=== PATIENT | male | born 1965 | race Caucasian/White ===

== ENCOUNTER 2016-07-19 16:05 | Emergency (ER) | payer BC ==
[2016-07-19] MEDS: Acetaminophen 325 MG Tab PO ONE (16:30)
[2016-07-19] MEDS: Sodium Chloride 0.9% 1,000 ML IV ONE (16:30)
[2016-07-19] MEDS: Ketorolac 30 MG/ML SDV IVPUSH ONE (16:30)
[2016-07-19] MEDS: Metoclopramide 10 MG/2 ML SDV IVPUSH ONE (16:40)
[2016-07-19] MEDS: LORazepam 2 MG/ML MDV IVPUSH ONE (17:28)
[2016-07-19] MEDS: Pramipexole 0.5 MG Tab PO SCH (18:00)
[2016-07-19] MEDS: Amitriptyline 25 MG Tab PO ONE (18:00)
[2016-07-19] MEDS: Amitriptyline 25 MG Tab ONE (18:00)
[2016-07-19] MEDS: Pregabalin 25 MG Cap PO SCH (18:00)
--- NOTE | 2016-07-19 18:18 | EDM.PDOC ---
ED HPI GENERAL MEDICAL PROBLEM - General Chief Complaint: Fever Stated Complaint: fever Time Seen by Provider: 07/19/16 16:22 Source of Information: Reports: Patient History Limitations: Reports: No limitations - History of Present Illness INITIAL COMMENTS - FREE TEXT/NARRATIVE: PT PRESENTS WITH PERSISTENT FEVER BUT DID NOT TAKE ANY ANTIPYRETIC MEDS POST DISCHARGE. ADMITTED DURING NIGHT FOR FEVER. DENIES CP, SOB, N/V/D, ABD PAIN, OR DYSURIA Onset: gradual Onset Date: 07/18/16 Quality: Reports: Ache Severity: mild Improves with: Reports: None Worsens with: Reports: None Associated Symptoms: Reports: fever/chills - Related Data Allergies Allergy/AdvReac Type Severity Reaction Status Date / Time No Known Drug Allergies Allergy Cannot Verified 07/18/16 23:02 Remember Home Meds: Home Meds Amitriptyline [Elavil] 50 mg PO BEDTIME 07/18/16 [History] Apixaban [Eliquis] 5 mg PO BID 07/18/16 [History] DULoxetine [Cymbalta] 60 mg PO DAILY 07/18/16 [History] Pramipexole Di-HCl [Pramipexole Dihydrochloride] 2 mg PO BEDTIME PRN 07/18/16 [ History] Pregabalin [Lyrica] 200 mg PO BEDTIME 07/18/16 [History] Past Medical History Cardiovascular History: Reports: Blood clots/VTE/DVT Neurological History: Reports: Other (see below) Other Neuro History: Restless leg syndrome Psychiatric History: Reports: Depression Social & Family History - Tobacco Use Smoking Status *Q: Never Smoker Second Hand Smoke Exposure: No - Recreational Drug Use Recreational Drug Use: No ED ROS GENERAL - Review of Systems Review Of Systems: ROS reveals no pertinent complaints other than HPI. Constitutional: Reports: fever, chills HEENT: Reports: No symptoms Respiratory: Reports: no symptoms Cardiovascular: Reports: No symptoms Endocrine: Reports: no symptoms GI/Abdominal: Reports: No symptoms : Reports: no symptoms Musculoskeletal: Reports: no symptoms Skin: Reports: no symptoms Neurological: Reports: no symptoms Psychiatric: Reports: No symptoms Hematologic/Lymphatic: Reports: no symptoms Immunologic: Reports: no symptoms ED EXAM, GENERAL - Physical Exam Exam: See Below Exam Limited By: No limitations General Appearance: alert, WD/WN, no apparent distress Throat/Mouth: Normal inspection, Normal oropharynx, No airway compromise, Other (LEFT UPPER MANDIBLE TOOTH EXTRACTION SOCKET WITHOUT ERYTHEMA, EDEMA, OR BLEEDING) Neck: normal inspection, supple, non-tender. No: lymphadenopathy (L), lymphadenopathy (R) Respiratory/Chest: no respiratory distress, lungs clear, normal breath sounds, no accessory muscle use, chest non-tender Cardiovascular: regular rate, rhythm GI/Abdominal: normal bowel sounds, soft, non tender Extremities: normal inspection Neurological: alert, oriented, normal cognition Psychiatric: anxious Skin Exam: Warm, Dry, Intact, Normal color, No rash Lymphatic: no adenopathy Course - Vital Signs Last Recorded V/S: Last Vital Signs Temp 101.3 F H 07/19/16 16:30 Pulse Resp BP Pulse Ox - Orders/Labs/Meds Orders: Active Orders 24 hr Category Date Time Status Peripheral IV Care [RC] . DIRECTED Care 07/19/16 16:26 Active Sodium Chloride 0.9% [Syrex Flush] Med 07/19/16 16:26 Active 5 ml FLUSH Q8HR PRN Peripheral IV Insertion Adult [OM.PC] Routine Oth 07/19/16 16:26 Ordered Medication Orders Sodium Chloride (Syrex Flush) 5 ml FLUSH Q8HR PRN PRN Reason: Keep Vein Open Labs: Laboratory Tests 07/19/16 07/19/16 Range/Units 17:30 17:30 Lactic Acid 1.1 (0.4-2.0) mmol/L Creatine Kinase 152 (26-276) U/L Meds: Medications Generic Name Dose Route Start Last Admin Trade Name Freq PRN Reason Stop Dose Admin Sodium Chloride 5 ml 07/19/16 16:26 Syrex Flush FLUSH Q8HR PRN Keep Vein Open Discontinued Medications Generic Name Dose Route Start Last Admin Trade Name Freq PRN Reason Stop Dose Admin Acetaminophen 650 mg 07/19/16 16:26 07/19/16 16:30 Tylenol PO 07/19/16 16:27 650 mg NOW ONE Administration Amitriptyline HCl Confirm 07/19/16 17:55 Elavil Administered 07/19/16 17:56 Dose 100 mg .ROUTE .STK-MED ONE Sodium Chloride 1,000 mls @ 999 mls/hr 07/19/16 16:26 07/19/16 16:30 Normal Saline IV 07/19/16 17:26 999 mls/hr .BOLUS ONE Administration Ketorolac Tromethamine 30 mg 07/19/16 16:26 07/19/16 16:30 Toradol IVPUSH 07/19/16 16:27 30 mg ONETIME ONE Administration Lorazepam 1 mg 07/19/16 17:03 07/19/16 17:28 Ativan IVPUSH 07/19/16 17:04 1 mg ONETIME ONE Administration Metoclopramide HCl 10 mg 07/19/16 16:27 07/19/16 16:40 Reglan IVPUSH 07/19/16 16:28 10 mg ONETIME ONE Administration Pregabalin Confirm 07/19/16 17:54 Lyrica Administered 07/19/16 17:55 Dose 200 mg .ROUTE .[facility]-MED ONE - Re-Assessments/Exams Free Text/Narrative Re-Assessment/Exam: 07/19/16 18:16 FEVER REDUCED AND PT FEELS MUCH BETTER. BECAME ANXIOUS WHEN FEVER RETURNED WHILE HOME. WILL SEND HOME WITH REPEAT INSTRUCTIONS FOR FEVER CONTROL AND F/U TO PCP. Departure - Departure Time of Disposition: 18:18 Disposition: Home, Self-Care 01 Condition: good Clinical Impression: Fever Qualifiers: Fever type: unspecified Qualified Code(s): R50.9 - Fever, unspecified H/O tooth extraction Qualifiers: Tooth loss class: unspecified tooth loss Qualified Code(s): K08.409 - Partial loss of teeth, unspecified cause, unspecified class Additional Instructions: FOLLOW UP WITH PCP ON SUNDAY. RETURN TO ER SOONER IF SYMPTOMS CONTINUE - My Orders Last 24 Hours: My Active Orders 07/19/16 16:26 Peripheral IV Care [RC] . DIRECTED Sodium Chloride 0.9% [Syrex Flush] 5 ml FLUSH Q8HR PRN Peripheral IV Insertion Adult [OM.PC] Routine - Assessment/Plan Last 24 Hours: My Active Orders 07/19/16 16:26 Peripheral IV Care [RC] . DIRECTED Sodium Chloride 0.9% [Syrex Flush] 5 ml FLUSH Q8HR PRN Peripheral IV Insertion Adult [OM.PC] Routine
[2016-07-19] MEDS: Pregabalin 25 MG Cap ONE (19:17)
[2016-07-19] MEDS: Sodium Chloride 0.9% 5 ML Syringe FLUSH PRN (19:18)
[2016-07-19 19:31] VITALS: BP 150/100
== END 2016-07-19 18:30 | disposition home or self-care (01) ==
LOC: KA.ED 16:05
DX: R50.9 Fever, unspecified (principal); Z79.899 Other long term (current) drug therapy; Z86.718 Personal history of other venous thrombosis and embolism; G25.81 Restless legs syndrome; F32.9 Major depressive disorder, single episode, unspecified; K08.409 Partial loss of teeth, unspecified cause, unspecified class; Z98.890 Other specified postprocedural states
CPT/HCPCS: 36415; 82550; 83605; 96361; 96374; 96375; 99283; A9270-GY; J1885; J2060; J2765; J7030

== ENCOUNTER 2016-11-30 04:07 | Emergency (ER) | payer BC ==
[2016-11-30] MEDS ORDERED: Acetaminophen/oxyCODONE 325-5 MG Tab PO ONE ×2 (04:26→04:48)
[2016-11-30] MEDS ORDERED: Silver Sulfadiazine 1% Crm 400 GM Jar TOP ONE (04:26)
[2016-11-30] MEDS ORDERED: Diphtheria,Pertussis(Acell),Tetanus Vaccine 0.5 ML SDV IM ONE (04:26)
[2016-11-30] MEDS ORDERED: Silver Sulfadiazine 1% Crm 400 GM Jar ONE (04:27)
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
[2016-11-30 05:53] VITALS: BP 143/82
== END 2016-11-30 06:07 | disposition home or self-care (01) ==
LOC: KA.ED 04:07
DX: T23.252A Burn of second degree of left palm, initial encounter (principal); F32.9 Major depressive disorder, single episode, unspecified; Z79.899 Other long term (current) drug therapy
CPT/HCPCS: 16020; 90471; 90715; 99283; A9270

== ENCOUNTER 2017-10-11 15:00 | Emergency (ER) | payer BC ==
[2017-10-11 15:13] VITALS: BP 148/80
--- NOTE | 2017-10-11 15:39 | EDM.PDOC ---
ED HPI GENERAL MEDICAL PROBLEM - General Chief Complaint: General Stated Complaint: fever Time Seen by Provider: 10/11/17 15:15 Source of Information: Reports: Patient History Limitations: Reports: No Limitations - History of Present Illness INITIAL COMMENTS - FREE TEXT/NARRATIVE: Patient is a 52-year-old gentleman who presents to the emergency department with a complaint of fever and body aches. Patient states symptoms began yesterday and worsened today. She took [id number] TheraFlu without improvement. Patient denies shortness of breath, chest pain, nausea, vomiting, diarrhea, out of country travel, or contact with known sick individuals. Onset: Gradual Duration: Day(s): Quality: Reports: Ache (Overall body aches) Severity: Mild Improves with: Reports: None Worsens with: Reports: None Associated Symptoms: Reports: Cough, Fever/Chills. Denies: Nausea/Vomiting, Shortness of Breath Headache Pain Score (Numeric/FACES): 2 - Related Data Allergies Allergy/AdvReac Type Severity Reaction Status Date / Time No Known Drug Allergies Allergy Cannot Verified 11/30/16 04:09 Remember Home Meds: Home Meds Amitriptyline [Elavil] 50 mg PO BEDTIME 07/18/16 [History] DULoxetine [Cymbalta] 60 mg PO DAILY 07/18/16 [History] Pramipexole Di-HCl [Pramipexole Dihydrochloride] 2 mg PO BEDTIME PRN 07/18/16 [ History] Pregabalin [Lyrica] 200 mg PO BEDTIME 07/18/16 [History] Apixaban [Eliquis] 5 mg PO BID 10/11/17 [History] Baclofen 10 mg PO BID 10/11/17 [History] Diazepam [Valium] 5 mg PO BID PRN 10/11/17 [History] Omeprazole 40 mg PO DAILY 10/11/17 [History] metFORMIN HCl [Metformin HCl] 500 mg PO DAILY 10/11/17 [History] Past Medical History Cardiovascular History: Reports: Blood Clots/VTE/DVT Musculoskeletal History: Reports: Other (See Below) Other Musculoskeletal History: restless legs Neurological History: Reports: Other (See Below) Other Neuro History: Restless leg syndrome Psychiatric History: Reports: Depression Hematologic History: Reports: None Social & Family History - Caffeine Use Caffeine Use: Reports: Soda Caffeine Use Comment: did not ask ED ROS GENERAL - Review of Systems Review Of Systems: ROS reveals no pertinent complaints other than HPI. Constitutional: Reports: Fever, Chills HEENT: Reports: No Symptoms Respiratory: Reports: Cough Cardiovascular: Reports: No Symptoms Endocrine: Reports: No Symptoms GI/Abdominal: Reports: No Symptoms : Reports: No Symptoms Musculoskeletal: Reports: No Symptoms Skin: Reports: No Symptoms Neurological: Reports: No Symptoms Psychiatric: Reports: No Symptoms Hematologic/Lymphatic: Reports: No Symptoms Immunologic: Reports: No Symptoms ED EXAM, GENERAL - Physical Exam Exam: See Below Exam Limited By: No Limitations General Appearance: Alert, WD/WN, No Apparent Distress Eye Exam: Bilateral Eye: Normal Inspection Ears: Normal External Exam, Normal Canal, Normal TMs Nose: Normal Inspection, No Blood, Clear Rhinorrhea, Other (Mucosal erythema) Throat/Mouth: Normal Inspection, Normal Oropharynx, No Airway Compromise Head: Atraumatic, Normocephalic Neck: Normal Inspection, Supple, Non-Tender. No: Lymphadenopathy (L), Lymphadenopathy (R) Respiratory/Chest: No Respiratory Distress, Lungs Clear, Normal Breath Sounds, No Accessory Muscle Use, Chest Non-Tender Cardiovascular: Regular Rate, Rhythm, No Murmur GI/Abdominal: Normal Bowel Sounds, Soft, Non-Tender Back Exam: Normal Inspection. No: CVA Tenderness (L), CVA Tenderness (R) Extremities: Normal Inspection, No Pedal Edema Neurological: Alert, Oriented, Normal Cognition Psychiatric: Normal Affect, Normal Mood Skin Exam: Warm, Dry, Intact, Normal Color, No Rash Lymphatic: No Adenopathy Course - Vital Signs Last Recorded V/S: Last Vital Signs Temp 97.8 F 10/11/17 15:10 Pulse 66 10/11/17 15:10 Resp 18 10/11/17 15:10 BP 148/80 H 10/11/17 15:10 Pulse Ox 97 10/11/17 15:10 - Orders/Labs/Meds Orders: Active Orders 24 hr Category Date Time Status INFLUENZA A+B AG SCREEN [RM] Stat Lab 10/11/17 15:24 Ordered - Re-Assessments/Exams Free Text/Narrative Re-Assessment/Exam: 10/11/17 16:09 Patient afebrile, nontoxic appearing, vital signs stable, feels a little better after taking 6 mg Motrin. Influenza negative. Patient will follow-up with PCP Departure - Departure Time of Disposition: 16:09 Disposition: Home, Self-Care 01 Condition: Good Clinical Impression: Upper respiratory infection - Discharge Information Referrals: Marlin Garcia PA-C [Primary Care Provider] - Additional Instructions: Follow-up with the primary care doctor in 2-3 days. Return to emergency department sooner if symptoms continue or worsen. - My Orders Last 24 Hours: My Active Orders 10/11/17 15:24 INFLUENZA A+B AG SCREEN [RM] Stat - Assessment/Plan Last 24 Hours: My Active Orders 10/11/17 15:24 INFLUENZA A+B AG SCREEN [RM] Stat Assessment:: Upper respiratory infection Plan: Follow-up with PCP in 2-3 days
[2017-10-11] MEDS: Ibuprofen 600 MG Tab PO ONE (15:57)
== END 2017-10-11 16:15 | disposition home or self-care (01) ==
LOC: KA.ED 15:00
DX: J06.9 Acute upper respiratory infection, unspecified (principal); Z79.899 Other long term (current) drug therapy; Z79.84 Long term (current) use of oral hypoglycemic drugs
CPT/HCPCS: 87804; 99283; A9270-GY

== ENCOUNTER 2017-12-08 18:17 | Emergency (ER) | payer BC ==
[2017-12-08 18:38] VITALS: BP 120/82
--- NOTE | 2017-12-08 18:40 | EDM.PDOC ---
ED HPI GENERAL MEDICAL PROBLEM - General Chief Complaint: Upper Extremity Injury/Pain Stated Complaint: LEFT ARM INJURY Time Seen by Provider: 12/08/17 18:20 Source of Information: Reports: Patient History Limitations: Reports: No Limitations - History of Present Illness INITIAL COMMENTS - FREE TEXT/NARRATIVE: Patient is a 52-year-old gentleman who presents to the emergency department this afternoon with a complaint of left wrist laceration. Patient states he was using a sharp knife and accidentally cut left wrist. This happened just prior to arrival. Patient is not up-to-date with tetanus. Patient denies any other injury, or intent to hurt self. Onset: Today, Sudden Onset Date: 12/08/17 Onset Time: 17:00 Duration: Minutes: Location: Reports: Upper Extremity, Left Quality: Reports: Burning Severity: Mild Improves with: Reports: None Worsens with: Reports: None Context: Reports: Trauma Associated Symptoms: Reports: No Other Symptoms - Related Data Allergies Allergy/AdvReac Type Severity Reaction Status Date / Time No Known Drug Allergies Allergy Cannot Verified 12/08/17 18:33 Remember Home Meds: Home Meds Amitriptyline [Elavil] 50 mg PO BEDTIME 07/18/16 [History] DULoxetine [Cymbalta] 60 mg PO DAILY 07/18/16 [History] Pramipexole Di-HCl [Pramipexole Dihydrochloride] 2 mg PO BEDTIME PRN 07/18/16 [ History] Pregabalin [Lyrica] 200 mg PO BEDTIME 07/18/16 [History] Diazepam [Valium] 5 mg PO BID PRN 10/11/17 [History] Past Medical History Cardiovascular History: Reports: Blood Clots/VTE/DVT Musculoskeletal History: Reports: Other (See Below) Other Musculoskeletal History: restless legs Neurological History: Reports: Other (See Below) Other Neuro History: Restless leg syndrome Psychiatric History: Reports: Depression Hematologic History: Reports: None Social & Family History - Caffeine Use Caffeine Use: Reports: Soda Caffeine Use Comment: did not ask Review of Systems - Review of Systems Review Of Systems: ROS reveals no pertinent complaints other than HPI. Constitutional: Reports: No Symptoms Eyes: Reports: No Symptoms Ears: Reports: No Symptoms Nose: Reports: No Symptoms Mouth/Throat: Reports: No Symptoms Respiratory: Reports: No Symptoms Cardiovascular: Reports: No Symptoms GI/Abdominal: Reports: No Symptoms Genitourinary: Reports: No Symptoms Musculoskeletal: Reports: No Symptoms Skin: Reports: Wound (Laceration to left medial wrist) Neurological: Reports: No Symptoms Psychiatric: Reports: No Symptoms ED EXAM, GENERAL - Physical Exam Exam: See Below Exam Limited By: No Limitations General Appearance: Alert, WD/WN, No Apparent Distress Throat/Mouth: Normal Inspection, Normal Oropharynx, No Airway Compromise Head: Atraumatic, Normocephalic Respiratory/Chest: No Respiratory Distress Extremities: Normal Inspection Neurological: Alert, Oriented, Normal Cognition Psychiatric: Normal Affect, Normal Mood Skin Exam: Wound/Incision (3 cm linear laceration at the medial aspect of left wrist. No arterial or tendon involvement noted) ED TRAUMA EXTREMITY PROCEDURES - Laceration/Wound Repair Left Medial Distal Wrist Lac/Wound Length In cm: 3 Appearance: Superficial Distal NVT: Neuro & Vascular Intact, No Tendon Injury Anesthetic Type: Local Local Anesthesia - Lidocaine (Xylocaine): 2% Plain Local Anesthetic Volume: 3cc Skin Prep: Providone-Iodine (Betadine) Closed With: Sutures Suture Size: 4-0 Suture Type: Nylon, Interrupted Sterile Dressing Applied: Nurse Tetanus Status Addressed: Yes Complications: No Course - Orders/Labs/Meds Meds: Medications Discontinued Medications Generic Name Dose Route Start Last Admin Trade Name Elodia PRN Reason Stop Dose Admin Lidocaine HCl Confirm 12/08/17 18:25 Xylocaine 1% Administered 12/08/17 18:26 Dose 20 ml .ROUTE .STK-MED ONE - Re-Assessments/Exams Free Text/Narrative Re-Assessment/Exam: 12/08/17 18:42 Patient afebrile, nontoxic appearing, vital signs stable. Tolerated procedure well. Patient will follow-up with PCP for suture removal in 10 days Departure - Departure Time of Disposition: 18:42 Disposition: Home, Self-Care 01 Condition: Good Clinical Impression: Forearm laceration Qualifiers: Encounter type: initial encounter Laterality: left Qualified Code(s): S51.812A - Laceration without foreign body of left forearm, initial encounter - Discharge Information Instructions: Stitches, Tad, or Adhesive Wound Closure, [id number], Sutured Wound Care, [id number] Forms: ED Department Discharge Additional Instructions: Follow-up with PCP in 10 days for suture removal. Return to emergency department sooner if symptoms continue or worsen.
[2017-12-08] MEDS: Lidocaine 1% 20 ML MDV ONE (18:45)
[2017-12-08] MEDS: Bacitracin/Neomycin/Polymyxin B Oint 0.9 GM U/D Packet TOP ONE (18:46)
[2017-12-08] MEDS: Diphtheria,Pertussis(Acell),Tetanus Vaccine 0.5 ML SDV IM ONE (18:47)
[2017-12-08] MEDS: Bacitracin/Neomycin/Polymyxin B Oint 0.9 GM U/D Packet ONE (19:25)
[2017-12-08] MEDS: Lidocaine 1% 50 ML MDV SUBCUT ONE (19:25)
== END 2017-12-08 18:50 | disposition home or self-care (01) ==
LOC: KA.ED 18:17
DX: S61.512A Laceration without foreign body of left wrist, initial encounter (principal); Z23 Encounter for immunization; W26.0XXA Contact with knife, initial encounter
CPT/HCPCS: 12002; 90471; 90715; 99283

== ENCOUNTER 2018-12-22 10:07 | Emergency (ER) | payer BC ==
[2018-12-22 10:49] VITALS: BP 130/88; PULSE 80
[2018-12-22 11:11] LABS: ANION GAP 11.7 mmol/L (5-15); CHLORIDE,CL 100 mmol/L (98-115); SODIUM,NA 134 mmol/L (136-145)
--- NOTE | 2018-12-22 12:54 | EDM.PDOC ---
ED HPI GENERAL MEDICAL PROBLEM - General Chief Complaint: General Stated Complaint: CAN'T STAY AWAKE Time Seen by Provider: 12/22/18 10:30 Source of Information: Reports: Patient, Family (mother) History Limitations: Reports: No Limitations - History of Present Illness INITIAL COMMENTS - FREE TEXT/NARRATIVE: Chief complaint" I can't stay awake" It 53-year-old gentleman reports that feeling tired and drowsy having a hard time staying awake. Denies any recent illnesses. He denies any history of anemia. He has not noticed any dark stools or bleeding from his stools. He's not had any hematuria. He's not had any upper respiratory infections. No chest pain, shortness of breath, abdominal complaints. He does have a history which reports significant for restless leg syndrome, diabetes, hypercholesterolemia, GERD, and history of a DVT. 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 He reports some increased stress this last week and states that his diet has not been good due to the stress load this week. He states that his blood sugars are fairly well controlled. Blood sugar this morning was 300. He states that he has not eaten anything today. He is on several medications which include Valium 5 mg baclofen 10 mg Lyrica 200 mg Mirapex 2 mg amitriptyline 50 mg and Cymbalta 60 mg he takes most of these medications during the evening with the exception of the Cymbalta he takes in the morning he is also on metformin 500 mg twice a day and request 5 mg for history of DVT. He reports he is noncompliant with the Ellik was. He also takes a statin and Prilosec. I will address the amount of medications that he takes at night and the concern with these being suppressant medications and comminution can be lethal. He states that he has to take him in order to help for his restless leg syndrome. 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: Other Medication(s) - Related Data Allergies Allergy/AdvReac Type Severity Reaction Status Date / Time No Known Drug Allergies Allergy Cannot Verified 12/22/18 12:05 Remember Home Meds: Home Meds Amitriptyline [Elavil] 50 mg PO BEDTIME 07/18/16 [History] DULoxetine [Cymbalta] 60 mg PO QAM 07/18/16 [History] Pregabalin [Lyrica] 200 mg PO BEDTIME 07/18/16 [History] diazePAM [Valium] 5 mg PO BID PRN 10/11/17 [History] Apixaban [Eliquis] 5 mg PO ASDIRECTED 12/22/18 [History] Baclofen 10 mg PO BEDTIME 12/22/18 [History] Omeprazole 40 mg PO ASDIRECTED 12/22/18 [History] Pramipexole Di-HCl [Mirapex] 2 mg PO BEDTIME 12/22/18 [History] Rosuvastatin [Crestor] 10 mg PO DAILY 12/22/18 [History] metFORMIN [Glucophage XR] 500 mg PO BID 12/22/18 [History] Past Medical History HEENT History: Reports: Impaired Vision Cardiovascular History: Reports: Blood Clots/VTE/DVT, High Cholesterol, Hypertension Gastrointestinal History: Reports: GERD Musculoskeletal History: Reports: Other (See Below) Other Musculoskeletal History: restless legs Neurological History: Reports: Other (See Below) Other Neuro History: Restless leg syndrome Psychiatric History: Reports: Anxiety, Depression, Hallucinations, Panic Attack Endocrine/Metabolic History: Reports: Diabetes, Type I, Obesity/BMI 30+ Hematologic History: Reports: None Dermatologic History: Reports: Psoriasis Other Dermatologic History: ears - Infectious Disease History Infectious Disease History: Reports: None - Past Surgical History HEENT Surgical History: Reports: Oral Surgery Cardiovascular Surgical History: Reports: None GI Surgical History: Reports: None Neurological Surgical History: Reports: None Musculoskeletal Surgical History: Reports: Carpal Tunnel Dermatological Surgical History: Reports: None Social & Family History - Tobacco Use Smoking Status *Q: Former Smoker Used Tobacco, but Quit: Yes Month/Year Tobacco Last Used: 03/1999 - Caffeine Use Caffeine Use: Reports: Coffee Caffeine Use Comment: 6-8 cups of coffee ED ROS GENERAL - Review of Systems Review Of Systems: See Below Constitutional: Reports: Malaise, Fatigue HEENT: Reports: No Symptoms Respiratory: Reports: No Symptoms Cardiovascular: Reports: Blood Pressure Problem Endocrine: Reports: High Glucose GI/Abdominal: Reports: No Symptoms : Reports: No Symptoms Musculoskeletal: Reports: Back Pain Skin: Reports: No Symptoms Neurological: Reports: No Symptoms Psychiatric: Reports: No Symptoms Hematologic/Lymphatic: Denies: Anemia Immunologic: Reports: No Symptoms ED EXAM, GENERAL - Physical Exam Exam: See Below Exam Limited By: No Limitations General Appearance: Alert, No Apparent Distress, Obese Eye Exam: Bilateral Eye: EOMI, PERRL Ears: Hearing Grossly Normal Nose: Normal Inspection Throat/Mouth: Normal Inspection, Normal Voice, No Airway Compromise Head: Atraumatic, Normocephalic Neck: Normal Inspection, Supple Respiratory/Chest: No Respiratory Distress, Lungs Clear, Normal Breath Sounds Cardiovascular: Regular Rate, Rhythm GI/Abdominal: Soft Back Exam: Normal Inspection Extremities: Normal Inspection, Normal Range of Motion Neurological: Alert, Oriented, Normal Gait, No Motor/Sensory Deficits Psychiatric: Normal Affect, Normal Mood Skin Exam: Warm, Dry, Intact, Normal Color, No Rash Lymphatic: No Adenopathy Course - Vital Signs Last Recorded V/S: Last Vital Signs Temp 97.8 F 12/22/18 10:47 Pulse 85 12/22/18 10:47 Resp 20 12/22/18 10:47 BP 134/79 12/22/18 10:47 Pulse Ox 95 12/22/18 10:47 - Orders/Labs/Meds Orders: Active Orders 24 hr Category Date Time Status Blood Glucose Check, Bedside [RC] ONETIME Care 12/22/18 10:20 Active Labs: Laboratory Tests 12/22/18 12/22/18 12/22/18 Range/Units 10:22 10:38 10:38 WBC 5.50 (5.00-10.00) 10^3/uL RBC 4.58 (4.50-6.00) 10^6/uL Hgb 14.4 (13.0-17.0) g/dL Hct 42.6 (40.0-52.0) % MCV 93.0 H (82.0-92.0) fL MCH 31.4 H (27.0-31.0) pg MCHC 33.8 (32.0-36.0) g/dL RDW 12.2 (11.5-14.5) % Plt Count 247 (150-400) 10^3/uL MPV 9.2 (7.4-10.4) fL Immature Gran % (Auto) 0.2 (0.0-5.0) % Neut % (Auto) 58.8 (50.0-70.0) % Lymph % (Auto) 26.2 (20.0-40.0) % [place] % (Auto) 8.4 H (2.0-8.0) % Eos % (Auto) 5.5 H (1.0-3.0) % Baso % (Auto) 0.9 (0.0-1.0) % Immature Gran # (Auto) 0.01 (0.00-0.50) 10^3/uL Neut # (Auto) 3.24 (2.50-7.00) 10^3/uL Lymph # (Auto) 1.44 (1.00-4.00) 10^3/uL [place]linger # (Auto) 0.46 (0.10-0.80) 10^3/uL Eos # (Auto) 0.30 (0.10-0.30) 10^3/uL Baso # (Auto) 0.05 (0.00-0.10) 10^3/uL Sodium 134 L (136-145) mmol/L Potassium 4.1 (3.3-5.3) mmol/L Chloride 100 (98-115) mmol/L Carbon Dioxide 26.4 (21.0-32.0) mmol/L Anion Gap 11.7 (5-15) mmol/L BUN 12 (6-25) mg/dL Creatinine 0.76 (0.51-1.17) mg/dL Est Cr Clr Drug Dosing 110.00 mL/min Estimated GFR (MDRD) > 60 mL/min Glucose 320 H (75 - 99) mg/dL POC Glucose 300 H (74-106) mg/dl Calcium 8.3 L (8.7-10.3) mg/dL Specimen Type Urine Color (YELLOW) Urine Appearance (CLEAR) Urine pH (5.0-9.0) Ur Specific [place] (1.005-1.030) Urine Protein (NEGATIVE) mg/dL Urine Glucose (UA) (NEGATIVE) mg/dL Urine Ketones (NEGATIVE) mg/dL Urine Occult Blood (NEGATIVE) Urine Nitrite (NEGATIVE) Urine Bilirubin (NEGATIVE) Urine Urobilinogen (0.2-1.0) E.U./dL Ur Leukocyte Esterase (NEGATIVE) Urine RBC (0-5) /HPF Urine WBC (0-5) /HPF Ur Epithelial Cells /LPF Urine Bacteria (NONE TO FEW) /HPF Urine Mucus (NEGATIVE) /LPF 12/22/18 Range/Units 10:45 WBC (5.00-10.00) 10^3/uL RBC (4.50-6.00) 10^6/uL Hgb (13.0-17.0) g/dL Hct (40.0-52.0) % MCV (82.0-92.0) fL MCH (27.0-31.0) pg MCHC (32.0-36.0) g/dL RDW (11.5-14.5) % Plt Count (150-400) 10^3/uL MPV (7.4-10.4) fL Immature Gran % (Auto) (0.0-5.0) % Neut % (Auto) (50.0-70.0) % Lymph % (Auto) (20.0-40.0) % [place]linger % (Auto) (2.0-8.0) % Eos % (Auto) (1.0-3.0) % Baso % (Auto) (0.0-1.0) % Immature Gran # (Auto) (0.00-0.50) 10^3/uL Neut # (Auto) (2.50-7.00) 10^3/uL Lymph # (Auto) (1.00-4.00) 10^3/uL [place]linger # (Auto) (0.10-0.80) 10^3/uL Eos # (Auto) (0.10-0.30) 10^3/uL Baso # (Auto) (0.00-0.10) 10^3/uL Sodium (136-145) mmol/L Potassium (3.3-5.3) mmol/L Chloride (98-115) mmol/L Carbon Dioxide (21.0-32.0) mmol/L Anion Gap (5-15) mmol/L BUN (6-25) mg/dL Creatinine (0.51-1.17) mg/dL Est Cr Clr Drug Dosing mL/min Estimated GFR (MDRD) mL/min Glucose (75 - 99) mg/dL POC Glucose (74-106) mg/dl Calcium (8.7-10.3) mg/dL Specimen Type Urinvoid Urine Color Yellow (YELLOW) Urine Appearance Clear (CLEAR) Urine pH 5.5 (5.0-9.0) Ur Specific [place] 1.015 (1.005-1.030) Urine Protein Negative (NEGATIVE) mg/dL Urine Glucose (UA) >=1000 H (NEGATIVE) mg/dL Urine Ketones Negative (NEGATIVE) mg/dL Urine Occult Blood Negative (NEGATIVE) Urine Nitrite Negative (NEGATIVE) Urine Bilirubin Negative (NEGATIVE) Urine Urobilinogen 0.2 (0.2-1.0) E.U./dL Ur Leukocyte Esterase Negative (NEGATIVE) Urine RBC Not seen (0-5) /HPF Urine WBC Not seen (0-5) /HPF Ur Epithelial Cells Rare /LPF Urine Bacteria Not seen (NONE TO FEW) /HPF Urine Mucus Few H (NEGATIVE) /LPF Departure - Departure Time of Disposition: 13:00 Disposition: Home, Self-Care 01 Condition: Good Clinical Impression: Noncompliance w/medication treatment due to intermit use of medication, Noncompliance with medication treatment due to overuse of medication, Drowsiness - Discharge Information Instructions: Benzodiazepine Withdrawal, Sedative, Hypnotic, or Anxiolytic Use Disorder Referrals: Marlin Garcia PA-C [Primary Care Provider] - Forms: ED Department Discharge - My Orders Last 24 Hours: My Active Orders 12/22/18 10:20 Blood Glucose Check, Bedside [RC] ONETIME - Assessment/Plan Last 24 Hours: My Active Orders 12/22/18 10:20 Blood Glucose Check, Bedside [RC] ONETIME Assessment:: 1. Drowsiness 2. Medication noncompliance 3. Multiple medication sedation due to combination of medications taken by patient Plan: 1. You're taking dangerous commendation of medications that are sedating all at night. You need a med reconciliation and follow-up with your primary care. 2. You been noncompliant with your Eliqis for DVT history, you're at risk for having a recurrent DVT or PE. 3. Have a history of restless leg syndrome for which you take most of these medications to help you sleep at night which are also sedating. Restless leg syndrome could also be partially caused by neuropathy which is most commonly seen in diabetics particularly if the blood sugars are poorly controlled. 4. Recommend repeat Doppler ultrasounds of her lower legs to make sure there is no underlying DVTs. I also would have further evaluation with arterial Doppler ultrasounds to rule out PAD. If these tests are negative and you can be on medications that can be helpful for your symptoms of her legs but would not recommend the combination that you're currently taking particularly all of these medications at night. 5. I recommend follow-up appointment tomorrow with Isabel SANCHEZ.
== END 2018-12-22 12:55 | disposition home or self-care (01) ==
LOC: KA.ED 10:07
DX: R40.0 Somnolence (principal); E78.00 Pure hypercholesterolemia, unspecified; I10 Essential (primary) hypertension; E10.9 Type 1 diabetes mellitus without complications; E66.9 Obesity, unspecified; F41.9 Anxiety disorder, unspecified; F32.9 Major depressive disorder, single episode, unspecified; Z91.14 Patient's other noncompliance with medication regimen; Z87.891 Personal history of nicotine dependence; Z79.01 Long term (current) use of anticoagulants; Z79.899 Other long term (current) drug therapy
CPT/HCPCS: 36415; 80048; 81001; 82962; 85025; 99283

== ENCOUNTER 2024-03-15 12:04 | Emergency (ER) | payer BC ==
[2024-03-15] MEDS: Lidocaine 1% 20 ML MDV INJECT ONE (12:15)
[2024-03-15 12:22] VITALS: BP 150/100; PULSE 92
[2024-03-15] MEDS: Diphtheria,Pertussis(Acell),Tetanus Vaccine 0.5 ML Syringe IM ONE (12:36)
[2024-03-15] MEDS: Doxycycline Monohydrate 100 MG Cap PO ONE (12:38)
== END 2024-03-15 12:50 | disposition home or self-care (01) ==
LOC: KA.ED 12:04
DX: S61.411A Laceration without foreign body of right hand, initial encounter (principal); I10 Essential (primary) hypertension; E78.00 Pure hypercholesterolemia, unspecified; E10.9 Type 1 diabetes mellitus without complications; E66.9 Obesity, unspecified; Z68.33 Body mass index [BMI] 33.0-33.9, adult; Z23 Encounter for immunization; Z79.84 Long term (current) use of oral hypoglycemic drugs; Z79.01 Long term (current) use of anticoagulants; Z79.899 Other long term (current) drug therapy; W26.8XXA Contact with other sharp object(s), not elsewhere classified, initial encounter
CPT/HCPCS: 12002; 73130-RT; 90471; 90715; 99283-25; A9270-GY; J3490